=== PATIENT | male | born 1980 | race Caucasian/White ===

== ENCOUNTER 2017-01-24 15:00 | Emergency (ER) | payer OTHER ==
[2017-02-02] MEDS ORDERED: NO MEDICATIONS (08:21)
== END 2017-01-24 18:25 | disposition home or self-care (01) ==
LOC: SED 15:00
DX: K40.90 Unilateral inguinal hernia, without obstruction or gangrene, not specified as recurrent (principal); F17.290 Nicotine dependence, other tobacco product, uncomplicated
CPT/HCPCS: 99283

== ENCOUNTER → 2017-02-13 | Day surgery (SDC) | payer OTHER ==
[~2017-02-13] MED LIST: NO MEDICATIONS
--- NOTE | ~2017-02-13 | OR ---
Unit #: [id number] #: [id number] Patient: GWENDOLYN MCKEON V [id number] [address] [place], [place] [address] [id number] O MR#: [id number] NAME: GWENDOLYN MCKEON V. ROOM: Date of Procedure: 02/13/2017 Admission Date: 02/13/2017 Surgeon: Hardeep Pineda M.D. : 1980 Attending Physician: Hardeep Pineda M.D. Referring Physician: Hardeep Pineda M.D. Primary Care Physician: Primary Care Physician No OPERATIVE REPORT PREOPERATIVE DIAGNOSIS Left inguinal hernia. POSTOPERATIVE DIAGNOSIS Incarcerated indirect left inguinal hernia. PROCEDURE PERFORMED Laparoscopic preperitoneal inguinal hernia repair of incarcerated left indirect inguinal hernia. MACHINE ERECTOR Fredrick. ANESTHESIA General endotracheal anesthesia. ESTIMATED BLOOD LOSS Minimal. IV FLUIDS 500 of crystalloid. COMPLICATIONS None. INDICATIONS FOR PROCEDURE The patient is a 37-year-old gentleman with a bulge in his left groin consistent with an inguinal hernia. DESCRIPTION OF PROCEDURE The patient was taken to the operating theater, and placed in the supine position. General anesthesia was induced. The abdomen was prepped and draped. An infraumbilical incision was then made. A small incision was made in the anterior sheath, and I created the preperitoneal space with blunt dissection. I then placed a Veress needle intra-abdominally. The abdomen was insufflated to 15 mmHg with CO2. I then placed a 5 mm port. The patient was placed in the Trendelenburg. I identified a left-sided indirect inguinal hernia. This was reduced with external palpation. I saw no evidence of right-sided hernia. The pneumoperitoneum was released. I then created the preperitoneal space in the left side only using the AutoSuture balloon dissection system. I placed two 5 mm ports in the Unit #: [id number] #: [id number] Patient: GWENDOLYN MCKEON V midline. I dissected the left groin identifying the lateral space. The cord was skeletonized. The hernia sac was from the cord, this was then transected and ligated, I thus reducing the hernia. I identified Js ligament. I placed a large 3DMax mesh into position. This covered the direct and indirect spaces nicely. I then released the pneumopreperitoneum preperitoneally with care taken to avoid the peritoneum sliding posterior to the mesh. The ports were then removed. The fascia was closed with 0-Vicryl. The skin with 4-0 Vicryl. The patient tolerated the procedure well, and was sent to the recovery room in good condition. Dictated by... Scott Verduzco/mihai TD: 02/13/2017 11:22 JOB #: [id number] OPERATIVE REPORT Page 1 of 1 X Hardeep Pineda MD X PROCEDURE OPERATIVE NOTE
== END | disposition home or self-care (01) ==
LOC: CSUR 05:08
DX: K40.30 Unilateral inguinal hernia, with obstruction, without gangrene, not specified as recurrent (principal); F17.200 Nicotine dependence, unspecified, uncomplicated; Z88.6 Allergy status to analgesic agent; Z98.890 Other specified postprocedural states
CPT/HCPCS: C1781; J0131; J0330; J0690; J1100; J1644; J1885; J2250; J2405; J2710; J3010